=== PATIENT | female | born 1950 | race Caucasian/White ===

== ENCOUNTER 2017-02-27 15:57 | Emergency (ER) | payer BC ==
[2017-02-27 16:05] VITALS: BP 132/82; PULSE 68; RESP 17; TEMP 98.1; O2SAT 98
--- NOTE | 2017-02-27 16:18 | EDPHY ---
H & P Stated Complaint: hit by skateboarde thrown to ground hit head/r ankl and l rib pain/denies / Time Seen by Provider: 02/27/17 16:09 HPI/ROS: CHIEF COMPLAINT: Collision HISTORY OF PRESENT ILLNESS: The patient is a 66-year-old female who was walking on the path when a skateboarder collided with her. She was knocked to the ground. She has abrasions to both elbows and her right knee. She is complaining of pain in her right ankle and has mild swelling to her proximal foot on the right. She does not think she hit her head. She denies loss of consciousness. She does not have any contusions or hematomas or lacerations. No headache or nausea. She is complaining of some mild left rib pain the. It does not hurt with deep inspiration. She does not feel short of breath. REVIEW OF SYSTEMS: Constitutional: denies: chills, fever, recent illness, recent injury EENTM: denies: blurred vision, double vision, nose congestion Respiratory: denies: cough, shortness of breath Cardiac: denies: chest pain, irregular heart rate, lightheadedness, palpitations Gastrointestinal/Abdominal: denies: abdominal pain, diarrhea, nausea, vomiting, blood streaked stools Genitourinary: denies: dysuria, frequency, hematuria, pain Musculoskeletal:see HPI Skin: denies: lesions, rash, jaundice, bruising Neurological: denies: headache, numbness, paresthesia, tingling, dizziness, weakness Hematologic/Lymphatic: denies: blood clots, easy bleeding, easy bruising Immunologic/allergic: denies: HIV/AIDS, transplant EXAM: GENERAL: Well-appearing, well-nourished and in no acute distress. HEAD: Atraumatic, normocephalic. EYES: Pupils equal round and reactive to light, extraocular movements intact, sclera anicteric, conjunctiva are normal. ENT: TMs normal, nares patent, oropharynx clear without exudates. Moist mucous membranes. NECK: Normal range of motion, supple without lymphadenopathy or JVD. LUNGS: Breath sounds clear to auscultation bilaterally and equal. No wheezes rales or rhonchi. Very slight pain to left anterior rib. No bruising or deformity. HEART: Regular rate and rhythm without murmurs, rubs or gallops. ABDOMEN: Soft, nontender, normoactive bowel sounds. No guarding, no rebound. No masses appreciated. BACK: No CVA tenderness, no spinal tenderness, step-offs or deformities EXTREMITIES: Right proximal foot pain with small hematoma. No ankle swelling or deformity. No bony tenderness. Abrasions to right knee, abrasions to both elbows. Normal range of motion and sensation. Normal strength. NEUROLOGICAL: Cranial nerves II through XII grossly intact. Normal speech, normal gait. 5/5 strength, normal movement in all extremities, normal sensation PSYCH: Normal mood, normal affect. SKIN: Warm, dry, normal turgor, no visible rashes or lesions. 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 - Family History Significant Family History: No pertinent family hx - Social History Smoking Status: Never smoked Alcohol Use: Sober Drug Use: None Constitutional: Initial Vital Signs Temperature (C) 36.7 C 02/27/17 16:00 Heart Rate 68 02/27/17 16:00 Respiratory Rate 17 02/27/17 16:00 Blood Pressure 132/82 H 02/27/17 16:00 O2 Sat (%) 98 02/27/17 16:00 O2 Delivery Mode Room Air Allergies/Adverse Reactions: No Known Allergies Allergy (Unverified 02/27/17 16:00) Home Medications: Medication Instructions Recorded Aspirin 81mg (*) 02/27/17 CALCIUM 02/27/17 Celexa 02/27/17 Lipitor 02/27/17 Medical Decision Making - Diagnostics Imaging Results: Imaging Impressions Ankle X-Ray 02/27/17 16:16 Impression: No evidence for acute fracture. Chronic findings, as above. Foot X-Ray 02/27/17 16:16 Impression: No evidence for acute fracture. Chronic findings, as above. Ribs w/Chest X-Ray 02/27/17 16:16 Impression: 1. No evidence for acute cardiopulmonary abnormality. 2. No evidence for rib fracture. Diffuse demineralization. Imaging: I viewed and interpreted images myself ED Course/Re-evaluation: We discussed the x-ray results which are reassuring. We have cleaned and dressed her wounds. I have encouraged ice compression and elevation. She is happy with this and declines further workup or testing at this time. Differential Diagnosis: Partial list of the Differential diagnosis considered include but were not limited to; contusion, fracture, dislocation, rib fracture and although unlikely based on the history and physical exam, I also considered pneumothorax , head injury. I discussed these differential diagnoses and the plan with the patient as well as the usual and expected course. The patient understands that the diagnosis is provisional and that in medicine we are not always correct and that further workup is often warranted. Usual and customary warnings were given. All of the patient's questions were answered. The patient was instructed to return to the emergency department should the symptoms at all worsen or return, otherwise to followup with the physician as we discussed. Departure - Departure Disposition: Home, Routine, Self-Care Clinical Impression: Abrasion Contusion Qualifiers: Encounter type: initial encounter Contusion area: foot Laterality: right Qualified Code(s): S90.31XA - Contusion of right foot, initial encounter Condition: Fair Instructions: Contusion in Adults (ED), Abrasion (ED) Referrals: DOMENIC ARCHULETA [Other] - As per Instructions
== END 2017-02-27 16:57 | disposition home or self-care (01) ==
DX: S50.311A Abrasion of right elbow, initial encounter (principal); S50.312A Abrasion of left elbow, initial encounter; S90.31XA Contusion of right foot, initial encounter; Z79.82 Long term (current) use of aspirin; W03.XXXA Other fall on same level due to collision with another person, initial encounter; Y92.89 Other specified places as the place of occurrence of the external cause; Y99.8 Other external cause status; Y93.01 Activity, walking, marching and hiking